=== PATIENT | male | born 2000 | race Caucasian/White ===

== ENCOUNTER 2018-09-16 20:22 | Inpatient (IN) | payer BC ==
[~2018-09-16] VITALS: Ht 167.6 cm; Wt 79.3 kg
[2018-09-16 23:30] VITALS: BP 143/75; PULSE 82; RESP 18
[2018-09-17 00:04] VITALS: Ht 167.6 cm; Wt 79.3 kg
[2018-09-17 02:00] VITALS: BP 142/73; PULSE 81; RESP 18
--- NOTE | 2018-09-17 05:07 | NUR ---
Dr. Aguillon called to obtain admission orders and request nausea and pain medication. Dr. Aguillon stated "ok, i'm going to look at it right now."
[2018-09-17] MEDS: DEXTROSE 5%-0.45% NACL 1,000 ML IV SCH ×2 (05:23→17:03)
[2018-09-17] MEDS ORDERED: NACL 0.9% 3 ML SYG IV SCH (05:30)
[2018-09-17] MEDS ORDERED: ALBUTEROL/IPRATROPIUM (NEB) 3 ML AMP HHN PRN (05:30)
[2018-09-17] MEDS ORDERED: METOCLOPRAMIDE 10 MG INJ IV ONE (05:30)
[2018-09-17] MEDS: morphine 4 MG/ML VIAL IV PRN (05:31)
[2018-09-17] MEDS: PANTOPRAZOLE 40 MG INJ IV SCH (05:33)
--- NOTE | 2018-09-17 05:35 | HP ---
Date/Time of Note Date/Time of Note DATE: 09/17/18 TIME: 05:34 Assessment/Plan VTE Prophylaxis Risk score (from Nsg)>0 risk: 0 Pharmacological prophylaxis: heparin Lines/Catheters IV Catheter Type (from Nrsg): Saline Lock Assessment/Plan Assessment/Plan 18-year-old with no significant past medical history transferred from outside hospital for insurance reason after he initially presented with intractable vomiting and epigastric abdominal pain. Abdominal ultrasound was negative unremarkable. CT abdomen/pelvis with finding of possible infectious/colitis and hiatal hernia PLAN Symptom can be from worsening of his gastritis or PUD keep n.p.o. with IV fluid for now pain meds and antiemetics PPI will consider repeating CT abdomen/pelvis based on clinical course, however at this point is not warranted. I also do not believe the initiation of antibiotics is necessary at this time will consider GI consult if symptoms persist HPI/ROS Admit Date/Time Admit Date/Time Sep 16, 2018 at 23:16 Hx of Present Illness This is a 18-year-old male with history of asthma and possible gastritis who initially presented on outside hospital complaining of abdominal pain and vomiting. Pain is mainly localized in the epigastric area. Emesis described as nonbilious nonbloody. Symptom has been progressively getting worse for the past 4 days. At the outside facility abdominal ultrasound was unremarkable. CT abdomen/pelvis shows some findings that could be from an infectious etiology/colitis. Also small hiatal hernia was noted. He denies diarrhea. On further questioning however, he said vomiting actually is been going on for about 8 months but with much less intensity. He said every few days, he occasionally has been vomiting in the morning almost always after having bowel movement. Over the past 4 days however, he has had multiple vomiting episodes as well as epigastric abdominal pain and as such she decided to come for evaluation. Denied alcohol or marijuana PMH/Family/Social Past Medical History PMH/Family/Social Past Medical History Medical History: other (see hpi) Coded Allergies: No Known Drug Allergy (Verified Allergy, Unknown, 05/02/16) Past Surgical History Past Surgical Hx: other (see hpi) Family History Significant Family History: no pertinent family hx Social History Alcohol Use: other Smoking Status: Unknown if ever smoked Drug Use: other Medications Current Medications Dextrose/Sodium Chloride 1,000 ml @ 125 mls/hr Q8H IV ; Start 09/17/18 at 05:08 IV Flush (NS 3 ml) 3 ml PER PROTOCOL IV ; Start 09/17/18 at 05:30 Ondansetron HCl (Zofran Inj) 4 mg Q6H PRN IV NAUSEA AND/OR VOMITING; Start 09/17/18 at 05:30 Morphine Sulfate (morphine) 3 mg Q4H PRN IV SEVERE PAIN LEVEL 7-10; Start 09/17/18 at 05:30 Pantoprazole (Protonix Iv) 40 mg DAILY@06 IV ; Start 09/17/18 at 06:00 Albuterol/ Ipratropium (Duoneb) 3 ml Q2H RESP THERAPY PRN HHN SHORTNESS OF BREATH; Start 09/17/18 at 05:30 Coded Allergies: No Known Allergies (Verified Allergy, Unknown, 09/17/18) Social History Smoking Status: Former smoker Exam/Review of Systems Vital Signs Vitals Vital Signs Date Temp Pulse Resp B/P (MAP) Pulse Ox O2 O2 Flow FiO2 Time Delivery Rate 09/17/18 98.3 81 18 142/73 96 02:00 (96) Exam Constitutional: alert, oriented, well developed Eyes: EOMI Neck: supple, non-tender Respiratory: clear to auscultation Cardiovascular: regular rate and rhythm, nl pulses Gastrointestinal: soft, non-tender Extremities: normal pulses LUZ ELENA MARSHALL MD Sep 17, 2018 05:35
[2018-09-17 07:40] VITALS: BP 135/82; PULSE 60; RESP 16
--- NOTE | 2018-09-17 11:54 | NUR ---
SS Note: AHCD SW received notification pt interested in more information regarding AHCD. The patient is a 18-year-old male with history of asthma and possible gastritis admitted due to abdominal pain and vomiting. SW met with pt to provide support, complete psychosocial assessment, and link pt to appropriate resources as needed. Pt agreed for his mother and girlfriend to be at bedside. Pt reported he is single and has no children. Pt verbally appointed his mother, Haleigh Hardy , as surrogate decision maker/spokesperson. Pt confirmed address on facesheet and stated he lives with friends. 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 Pt is independent with ADL's and does not require DME. Pt has [employer] insurance. No PCP. SW introduced self and the role of the social work assistant. SW discussed and provided education about completing and facilitating the AHCD. Pt was provided with AHCD form. No AHCD f/u requested. SW encouraged f/u with PCP as outpatient and provided list of community clinics for a PCP. SW assessed for other needs, which were denied at this time. SW remains available for f/u as needed.
[2018-09-17 14:30] VITALS: BP 142/82; PULSE 62; RESP 16
--- NOTE | 2018-09-17 15:32 | QN ---
Documentation Comment 18-year-old male with no significant past medical history, was transferred from outside hospital where he initially presented with 3-day duration of feeling weak with nonbilious/nonbloody vomiting, abdominal pain and diarrhea. Currently patient symptoms are completely resolved. Repeat abdominal x-ray at [facility] showed no evidence of obstruction with mild ileus. This could be most likely secondary to gastroenteritis. Currently, he is asymptomatic and we will start him on a clear diet and advance as tolerated. If patient remains stable without any further symptoms, DC planning in a.m. He is also very eager to be discharged. I have also instructed patient to have a gastroenterology outpatient consultation for a screening EGD/colonoscopy which he verbalized understanding. Case discussed with Dr. Ivey. SIRISHA GOINS NP Sep 17, 2018 15:32
--- NOTE | 2018-09-17 19:00 | NUR ---
Patient on bed rest, alert and oriented, vital signs stable. Denies pain. Full liquid diet well tolerated. No nausea or vomiting, no abdominal pain. Patient continue with IV fluids.
[2018-09-17 20:09] VITALS: BP 135/80; PULSE 61; RESP 16
[2018-09-18] MEDS: DEXTROSE 5%-0.45% NACL 1,000 ML IV SCH ×4 (01:27→21:02)
[2018-09-18 03:18] VITALS: BP 144/87; PULSE 60; RESP 18
[2018-09-18] MEDS: PANTOPRAZOLE 40 MG INJ IV SCH (06:00)
--- NOTE | 2018-09-18 06:22 | NUR ---
RN Notes Patient had no changes in condition overnight. Remained afebrile and continuously denied any pain or discomfort. IV to right ac infiltrated and new site inserted. Hourly rounding provided, patient's bed at lowest position. Will endorse to oncoming RN for continuation of care.
[2018-09-18 08:05] VITALS: BP 137/88; PULSE 56; RESP 18
[2018-09-18] MEDS: ONDANSETRON 4 MG INJ IV PRN (08:42)
[2018-09-18] MEDS: morphine 4 MG/ML VIAL IV PRN ×2 (08:43→16:46)
[2018-09-18] MEDS ORDERED: METOCLOPRAMIDE 10 MG INJ IV ONE (11:00)
--- NOTE | 2018-09-18 12:49 | PN ---
Date/Time of Note Date/Time of Note DATE: 09/18/18 TIME: 12:48 Assessment/Plan VTE Prophylaxis Risk score (from Ns)>0 risk: 1 SCD applied (from Ns): Yes Pharmacological prophylaxis: NA/contraindicated Pharm contraindication: low risk/ambulating Lines[facility] IV Urinary Cath still in place: No Assessment/Plan Hospital Course SUBJECTIVE: Patient with 7 out of 10 abdominal pain. Also had an episode of vomiting with diet advancement. Feeling slightly nauseated at this time. OBJECTIVE: Vital signs-see below PHYSICAL EXAM: Constitutional: Well-developed, adequately built, lying in bed comfortably. Psych: nl mood/affect, no complaints Head: atraumatic, normocephalic Eyes: nl conjunctiva, nl sclera ENMT: mucosa pink and moist, nl external ears & nose Neck: non-tender, supple Respiratory: clear to auscultation, normal air movement Cardiovascular: nl pulses, regular rate and rhythm Gastrointestinal: Generalized tenderness to all quadrants. No rebound tenderness. Soft, bowel sounds active in all 4 quadrants. Musculoskeletal/extremities: nl extremities to inspection, motor strength equal bilaterally, no focal deficit. Normal pulses,no cyanosis, no edema. Neurological: Alert oriented 3,nl speech, nl strength Skin: nl turgor ASSESSMENT/PLAN:18-year-old male with no significant past medical history, was transferred from outside hospital where he initially presented with 3-day duration of feeling weak with nonbilious/nonbloody vomiting, abdominal pain and diarrhea. 1. Acute gastroenteritis. -We will de-escalate diet back to clear liquid as he could not tolerate a regular diet today. -Patient with no fevers, trending down WBC, no indication for antibiotics. -PPI prophylaxis, IV fluids, PRN Zofran and add Reglan [id number] for the next 24 hours to alleviate his symptoms. -If symptoms persist, will consider GI evaluation for EGD evaluation. 2. Ileus -Likely secondary to #1 -Obtain a CT abdomen and pelvis with and without contrast to rule out any obstruction. -Continue IV fluids, change diet back to clear. 3. Leukocytosis, likely reactive. -Improved without antibiotics. DVT prophylaxis: SCDs PUD prophylaxis: PPI CODE STATUS: Full code Diet: Clear diet. Disposition: Continue current medical management. Await for clinical improvement. Follow-up CT findings. Patient was seen in collaboration with . Result Diagram: 09/18/18 0520 09/18/18 0520 Results 24hrs Laboratory Tests Test 09/18/18 05:20 White Blood Count 12.0 #H Red Blood Count 4.94 Hemoglobin 14.7 Hematocrit 41.9 L Mean Corpuscular Volume 84.8 Mean Corpuscular Hemoglobin 29.8 Mean Corpuscular Hemoglobin Concent 35.1 Red Cell Distribution Width 12.8 Platelet Count 282 Mean Platelet Volume 10.1 Immature Granulocytes % 0.700 H Neutrophils % 55.4 Lymphocytes % 33.8 Monocytes % 8.9 Eosinophils % 0.8 Basophils % 0.4 Nucleated Red Blood Cells % 0.0 Immature Granulocytes # 0.080 H Neutrophils # 6.6 Lymphocytes # 4.0 H Monocytes # 1.1 H Eosinophils # 0.1 Basophils # 0.1 Nucleated Red Blood Cells # 0.0 Sodium Level 143 Potassium Level 3.8 Chloride Level 101 Carbon Dioxide Level 29 Anion Gap 13 Blood Urea Nitrogen 12 Creatinine 0.78 Est Glomerular Filtrat Rate mL/min > 60 Glucose Level 107 Calcium Level 9.6 Phosphorus Level 4.6 Magnesium Level 2.3 Exam/Review of Systems Vital Signs Vitals Vital Signs Date Temp Pulse Resp B/P (MAP) Pulse Ox O2 O2 Flow FiO2 Time Delivery Rate 09/18/18 98.5 56 18 137/88 98 08:05 (104) 09/17/18 Room Air 14:30 Intake and Output 09/17/18 09/17/18 09/18/18 1515:00 23:00 07:00 IntakeIntake Total 1600 ml 1875 ml BalanceBalance 1600 ml 1875 ml Medications Medications Current Medications Dextrose/Sodium Chloride 1,000 ml @ 125 mls/hr Q8H IV Last administered on 09/18/18at 11:06; Admin Dose 125 MLS/HR; Start 09/17/18 at 05:08 IV Flush (NS 3 ml) 3 ml PER PROTOCOL IV ; Start 09/17/18 at 05:30 Ondansetron HCl (Zofran Inj) 4 mg Q6H PRN IV NAUSEA AND/OR VOMITING Last administered on 09/18/18at 08:42; Admin Dose 4 MG; Start 09/17/18 at 05:30 Morphine Sulfate (morphine) 3 mg Q4H PRN IV SEVERE PAIN LEVEL 7-10 Last admin istered on 09/18/18at 08:43; Admin Dose 3 MG; Start 09/17/18 at 05:30 Pantoprazole (Protonix Iv) 40 mg DAILY@06 IV Last administered on 09/18/18at 06:00; Admin Dose 40 MG; Start 09/17/18 at 06:00 Albuterol/ Ipratropium (Duoneb) 3 ml Q2H RESP THERAPY PRN HHN SHORTNESS OF BREATH; Start 09/17/18 at 05:30 SIRISHA GOINS V. WEATHER CLERK Sep 18, 2018 12:49
[2018-09-18 14:30] VITALS: BP 130/63; PULSE 58; RESP 16
[2018-09-18] MEDS: METOCLOPRAMIDE 10 MG INJ IV SCH (16:46)
--- NOTE | 2018-09-18 17:23 | CONS ---
Date/Time of Note Date/Time of Note DATE: 09/18/18 TIME: 17:09 Assessment/Plan Assessment/Plan Assessment/Plan Assessment: Intractable nausea and vomiting Epigastric pain Gas/bloating Diarrhea Mild ileus Former marijuana user -quit 1 month ago Plan: Stool studies Stool for H. pylori Tigan x1 Continue Reglan, Zofran and PPI Start Levsin CT scan pending Patient seen in collaboration with Result Diagram: 09/18/18 0520 09/18/18 0520 Results 24hrs Laboratory Tests Test 09/18/18 05:20 White Blood Count 12.0 #H Red Blood Count 4.94 Hemoglobin 14.7 Hematocrit 41.9 L Mean Corpuscular Volume 84.8 Mean Corpuscular Hemoglobin 29.8 Mean Corpuscular Hemoglobin Concent 35.1 Red Cell Distribution Width 12.8 Platelet Count 282 Mean Platelet Volume 10.1 Immature Granulocytes % 0.700 H Neutrophils % 55.4 Lymphocytes % 33.8 Monocytes % 8.9 Eosinophils % 0.8 Basophils % 0.4 Nucleated Red Blood Cells % 0.0 Immature Granulocytes # 0.080 H Neutrophils # 6.6 Lymphocytes # 4.0 H Monocytes # 1.1 H Eosinophils # 0.1 Basophils # 0.1 Nucleated Red Blood Cells # 0.0 Sodium Level 143 Potassium Level 3.8 Chloride Level 101 Carbon Dioxide Level 29 Anion Gap 13 Blood Urea Nitrogen 12 Creatinine 0.78 Est Glomerular Filtrat Rate mL/min > 60 Glucose Level 107 Calcium Level 9.6 Phosphorus Level 4.6 Magnesium Level 2.3 CC: ALVARO OAKES MD ; Consultation Date/Type/Reason Admit Date/Time Sep 16, 2018 at 23:16 Date of Consultation: Sep 18, 2018 Type of Consult GI Reason for Consultation Intractable nausea and vomiting Hx of Present Illness This is a 18-year-old male with no significant medical history who has been transferred from outside hospital for insurance reason with intractable nausea and vomiting, abdominal pain and diarrhea. Patient reports his symptoms started 4 days ago. Patient has a history of marijuana use. He had a similar episode happened 8 months ago. Patient reports quitting marijuana use 1 month ago. Currently patient denies hematemesis, hematochezia, constipation or fever. Complaining of epigastric pain on palpation. Abdominal x-ray shows mild ileus. CT of the abdomen has been ordered. The plan is to continue Reglan, Zofran and n.p.o. status. Will order Tigan x1, GI cocktail, stool studies and stool for H. pylori. Continue observation. Gastrointestinal: no complaints (See HPI) Past Medical History Medical History: no pertinent history Medications Current Medications Dextrose/Sodium Chloride 1,000 ml @ 125 mls/hr Q8H IV Last administered on 09/18/18at 11:06; Admin Dose 125 MLS/HR; Start 09/17/18 at 05:08 IV Flush (NS 3 ml) 3 ml PER PROTOCOL IV ; Start 09/17/18 at 05:30 Ondansetron HCl (Zofran Inj) 4 mg Q6H PRN IV NAUSEA AND/OR VOMITING Last administered on 09/18/18at 08:42; Admin Dose 4 MG; Start 09/17/18 at 05:30 Morphine Sulfate (morphine) 3 mg Q4H PRN IV SEVERE PAIN LEVEL 7-10 Last administered on 09/18/18at 16:46; Admin Dose 3 MG; Start 09/17/18 at 05:30 Pantoprazole (Protonix Iv) 40 mg DAILY@06 IV Last administered on 09/18/18at 06:00; Admin Dose 40 MG; Start 09/17/18 at 06:00 Albuterol/ Ipratropium (Duoneb) 3 ml Q2H RESP THERAPY PRN HHN SHORTNESS OF BREATH; Start 09/17/18 at 05:30 Metoclopramide HCl (Reglan) 10 mg Q6 IV Last administered on 09/18/18at 16:46; Admin Dose 10 MG; Start 09/18/18 at 18:00 Allergies: Coded Allergies: No Known Allergies (Verified Allergy, Unknown, 09/17/18) Social History Smoking Status: Former smoker Drug Use: marijuana (Quit 1 month ago) Exam/Review of Systems Vital Signs Vitals Vital Signs Date Temp Pulse Resp B/P (MAP) Pulse Ox O2 O2 Flow FiO2 Time Delivery Rate 09/18/18 98.5 56 18 137/88 98 08:05 (104) 09/17/18 Room Air 14:30 Intake and Output 09/17/18 09/17/18 09/18/18 1515:00 23:00 07:00 IntakeIntake Total 1600 ml 1875 ml BalanceBalance 1600 ml 1875 ml Exam PHYSICAL EXAMINATION: GENERAL: Well developed, well nourished, alert & oriented x 3, in no acute distress SKIN: No lesions, no stigmata chronic liver disease, no evidence of bleeding diathesis LYMPHATIC: No palpable lymphadenopathy. HEAD: Normocephalic, atraumatic, no tenderness. EYES: Pupils equal reactive to light and accommodation, full extraocular movements, sclera clear, non-icteric, no discharge. EARS/NOSE AND THROAT: Ears normal, nose normal, oropharynx normal, oral membranes well hydrated without lesions. NECK: Supple, no masses, thyroid normal, JVP within normal limits, carotids normal without bruits. CHEST: Inspection within normal limits. CARDIOVASCULAR: Heart: Regular rate and rhythm, no murmurs, gallops or rubs. Peripheral pulses present within normal limits, no cyanosis, clubbing or edemas. No pulsatile abdominal mass RESPIRATORY: Lungs clear to auscultation and percussion, no wheezing, no rubs GASTROINTESTINAL AND LIVER: Abdomen: Soft, epigastric tenderness, non-distended, no hernias, no masses, no organomegaly, no ascites, no guarding, no rebound tenderness, normoactive bowel sounds. Rectal: Deferred. GENITOURINARY: Male genitalia within normal limits. EXTREMITIES: No cyanosis, clubbing or edema. Medications Medications Current Medications Dextrose/Sodium Chloride 1,000 ml @ 125 mls/hr Q8H IV Last administered on 09/18/18at 11:06; Admin Dose 125 MLS/HR; Start 09/17/18 at 05:08 IV Flush (NS 3 ml) 3 ml PER PROTOCOL IV ; Start 09/17/18 at 05:30 Ondansetron HCl (Zofran Inj) 4 mg Q6H PRN IV NAUSEA AND/OR VOMITING Last administered on 09/18/18at 08:42; Admin Dose 4 MG; Start 09/17/18 at 05:30 Morphine Sulfate (morphine) 3 mg Q4H PRN IV SEVERE PAIN LEVEL 7-10 Last administered on 09/18/18at 16:46; Admin Dose 3 MG; Start 09/17/18 at 05:30 Pantoprazole (Protonix Iv) 40 mg DAILY@06 IV Last administered on 09/18/18at 06:00; Admin Dose 40 MG; Start 09/17/18 at 06:00 Albuterol/ Ipratropium (Duoneb) 3 ml Q2H RESP THERAPY PRN HHN SHORTNESS OF EDWARD ATH; Start 09/17/18 at 05:30 Metoclopramide HCl (Reglan) 10 mg Q6 IV Last administered on 09/18/18at 16:46; Admin Dose 10 MG; Start 09/18/18 at 18:00 JOANN ANDERSEN NP Sep 18, 2018 17:21
[2018-09-18] MEDS ORDERED: TRIMETHOBENZAMIDE 100 MG/ML VIAL IM ONE (17:30)
[2018-09-18] MEDS ORDERED: LIDOCAINE/MYLANTA 40 ML BTL PO ONE (17:30)
--- NOTE | 2018-09-18 18:05 | NUR ---
rn notes patient is alert and oriented X4, no s/s of acute distress noted. complains of pain and nausea and vomiting, medicated as ordered, Jennifer TELEPHONE ENGINEER and GI team made aware. all due medicine given. all needs attended to. call light placed within reach and fall precautions observed well. pending stool sample, will endorse next shift to collect. will continue to monitor.
[2018-09-18 20:00] VITALS: BP 136/79; PULSE 67; RESP 18
[2018-09-18] MEDS: HYOSCYAMINE 0.125 MG SUBL TAB SL SCH (20:58)
[2018-09-18] MEDS ORDERED: SOD CHLORIDE 0.9% 100 ML ONE (21:49)
[2018-09-18] MEDS ORDERED: IOHEXOL 300MG/ML 150 ML BTL ONE (21:49)
--- NOTE | 2018-09-18 22:00 | NUR ---
Procedure Ordered: CT ABD/PEL W/W/O Reason for Exam Today: ABD PAIN Previous Exams: Allergies: Current Medications Taken: Glucophage ( ) Metformin ( ) Previous reaction to contrast media: Yes ( ) No ( ) : Yes ( ) No (X ) Asthma: Yes ( ) No (X ) Diabetes: Yes ( ) No ( X) Myeloma: Yes ( ) No (X ) Heart Disease: Yes ( ) No (X ) Cardiac Disease: Yes ( ) No (X ) Kidney Disease: Yes ( ) No ( X) Vascular Disease: Yes ( ) No (X ) Patient Teaching done: Yes ( ) No ( ) Shading Painter Used: Yes ( ) No ( ) Name of Shading Painter: Language Used: As part of the test requested by your doctor, contrast media may be injected into your vein while the x-rays are being taken. Occasionally, reactions from IV contrast may occur. The physician and staff of this hospital are trained to treat these reactions. Select the type of Contrast that will be given to patient: Isovue 300 ( ) Isovue 370 ( ) Visipaque ( ) Cystografin ( ) Gastrographin ( ) Redi-cat ( ) Volumen ( ) Amount of contrast to be given: 100CC OMNI 300 IV ( ) PO ( ) Date given: 09/18/18 Lab Values: BUN: 11 Creatinine: .83 Reason why contrast cannot be given: Location of patient pre-procedure: Location of patient post procedure:
--- NOTE | 2018-09-18 23:00 | NUR ---
RN Notes Patient had abdominal/pelvic CT done, still pending results. No complaints of n/v or pain. Pending stool collection. Patient has not had a bowel movement. Endorsed to SUSANNA Hdez for continuity of care.
--- NOTE | 2018-09-18 23:05 | NUR ---
Received report to SUSANNA Hodgson for continuity of care. Will cont to monitor pt
[2018-09-19] MEDS: METOCLOPRAMIDE 10 MG INJ IV SCH ×3 (00:09→12:52)
[2018-09-19] MEDS: HYOSCYAMINE 0.125 MG SUBL TAB SL SCH ×3 (00:09→12:52)
[2018-09-19 01:29] VITALS: BP 142/86; PULSE 60; RESP 18
[2018-09-19] MEDS: ONDANSETRON 4 MG INJ IV PRN (03:03)
[2018-09-19] MEDS: morphine 4 MG/ML VIAL IV PRN (03:39)
[2018-09-19] MEDS: PANTOPRAZOLE 40 MG INJ IV SCH (06:03)
[2018-09-19] MEDS: DEXTROSE 5%-0.45% NACL 1,000 ML IV SCH (06:09)
--- NOTE | 2018-09-19 06:44 | NUR ---
End of shift Report: Awake on bed watching TV. NO SOB. No resp distress. Afebrile. On full liquid well-emani. Medicated for pain x1 this shift. Nausea med given x1 and with Reglan IV Q6H RTC. Needs attended and anticipated. Call light within reach. Will continue with current POC. Will endorse accordingly.
[2018-09-19 08:12] VITALS: BP 141/77; PULSE 57; RESP 18
--- NOTE | 2018-09-19 12:04 | PN ---
Date/Time of Note Date/Time of Note DATE: 09/19/18 TIME: 11:53 Assessment/Plan VTE Prophylaxis Risk score (from Ns)>0 risk: 1 SCD applied (from Ns): No SCD contraindicated: low risk/ambulating Pharmacological prophylaxis: NA/contraindicated Pharm contraindication: low risk/ambulating Lines/Catheters [facility] Type [facility] Peripheral IV Urinary Cath still in place: No Assessment/Plan Hospital Course Assessment: Intractable nausea and vomiting Epigastric pain Gas/bloating Diarrhea Mild ileus Former marijuana user -quit 1 month ago Leukocytosis- trending down Plan: Stool studies- pending Stool for H. pylori- pending CT scan reviewed- no GI etiology for current sx D/c planning per hospitalist Patient seen in collaboration with Subjective: Course reviewed with nursing staff Patient interviewed and examined All labs, imaging and other results reviewed The patient feels much better. Currently no c/o nausea/vomiting or abdominal pain. Diet gas been advanced to regular. stool studies pending, WBC down from admissio n. He is afebrile. pt appears astable for out-pt management. PHYSICAL EXAMINATION: GENERAL: Well developed, well nourished, alert & oriented x 3, in no acute distress SKIN: No lesions HEAD: Normocephalic, atraumatic, no tenderness. EYES: Pupils equal reactive to light EARS/NOSE AND THROAT: Ears normal, nose normal, oropharynx normal NECK: Supple, no masses CHEST: Inspection within normal limits. CARDIOVASCULAR: Heart: Regular rate and rhythm RESPIRATORY: Lungs clear to auscultation GASTROINTESTINAL AND LIVER: Abdomen: Soft, epigastric tenderness, non-distended, no hernias, no masses, no organomegaly, no ascites, no guarding, no rebound tenderness, normoactive bowel sounds. Rectal: Deferred. GENITOURINARY: Male genitalia within normal limits. EXTREMITIES: No cyanosis, clubbing or edema. Result Diagram: 09/19/18 0453 09/19/183 Results 24hrs Laboratory Tests Test 09/19/18 04:53 White Blood Count 12.0 H Red Blood Count 4.95 Hemoglobin 14.4 Hematocrit 41.3 L Mean Corpuscular Volume 83.4 Mean Corpuscular Hemoglobin 29.1 Mean Corpuscular Hemoglobin Concent 34.9 Red Cell Distribution Width 12.6 Platelet Count 282 Mean Platelet Volume 10.1 Immature Granulocytes % 0.500 H Neutrophils % 76.4 H Lymphocytes % 14.0 L Monocytes % 8.6 Eosinophils % 0.1 Basophils % 0.4 Nucleated Red Blood Cells % 0.0 Immature Granulocytes # 0.060 H Neutrophils # 9.2 H Lymphocytes # 1.7 Monocytes # 1.0 H Eosinophils # 0.0 Basophils # 0.1 Nucleated Red Blood Cells # 0.0 Sodium Level 139 Potassium Level 3.3 L Chloride Level 103 Carbon Dioxide Level 25 Anion Gap 11 Blood Urea Nitrogen 5 L Creatinine 0.65 Est Glomerular Filtrat Rate mL/min > 60 Glucose Level 131 Calcium Level 9.1 Exam/Review of Systems Vital Signs Vitals Vital Signs Date Temp Pulse Resp B/P (MAP) Pulse Ox O2 O2 Flow FiO2 Time Delivery Rate 09/19/18 98.0 57 18 141/77 0 Room Air 08:12 (98) Intake and Output 09/18/18 09/18/18 09/19/18 1414:59 22:59 06:59 IntakeIntake Total 125 ml 1000 ml OutputOutput Total 200 ml 800 ml BalanceBalance -75 ml -800 ml 1000 ml Medications Medications Current Medications Dextrose/Sodium Chloride 1,000 ml @ 125 mls/hr Q8H IV Last administered on 09/19/18at 06:09; Admin Dose 125 MLS/HR; Start 09/17/18 at 05:08 IV Flush (NS 3 ml) 3 ml PER PROTOCOL IV ; Start 09/17/18 at 05:30 Ondansetron HCl (Zofran Inj) 4 mg Q6H PRN IV NAUSEA AND/OR VOMITING Last administered on 09/19/18at 03:03; Admin Dose 4 MG; Start 09/17/18 at 05:30 Morphine Sulfate (morphine) 3 mg Q4H PRN IV SEVERE PAIN LEVEL 7-10 Last administered on 09/19/18at 03:39; Admin Dose 3 MG; Start 09/17/18 at 05:30 Pantoprazole (Protonix Iv) 40 mg DAILY@06 IV Last administered on 09/19/18at 06:03; Admin Dose 40 MG; Start 09/17/18 at 06:00 Albuterol/ Ipratropium (Duoneb) 3 ml Q2H RESP THERAPY PRN HHN SHORTNESS OF BREATH; Start 09/17/18 at 05:30 Metoclopramide HCl (Reglan) 10 mg Q6 IV Last administered on 09/19/18 06:03; Admin Dose 10 MG; Start 09/18/18 at 18:00 Hyoscyamine (Levsin (Sl)) 0.125 mg Q6 SL Last administered on 09/19/18 06:03; Admin Dose 0.125 MG; Start 09/18/18 at 18:00 EMMIE LANCASTER Sep 19, 2018 12:04
[2018-09-19] MEDS ORDERED: POTASSIUM CHLORIDE (SR) 20 MEQ TAB PO STA (12:20)
--- NOTE | 2018-09-19 12:30 | PDOCDIS ---
Discharge Instructions CONDITION [id number] Patient Condition: [id number] Stable HOME CARE INSTRUCTIONS: [id number] Diet Instructions: [id number] Regular FOLLOW UP/APPOINTMENTS Follow-up Plan Follow-up with primary care physician in 1 week. SIRISHA GOINS NP Sep 19, 2018 12:30
[2018-09-19] MEDS ORDERED: FAMO-96 PO (12:32)
--- NOTE | 2018-09-19 12:35 | NUR ---
RN NOTES Patient was seen by GEOMETRY TUTOR Jennifer, was made aware that potassium level is 3.3, GEOMETRY TUTOR gave an order to of potassium 20 mEq po x 1, Public Relations Associate also ordered to advance patient's diet to regular and if able to tolerate, patient may go home. Patient asked for ham sandwich, was able to finish and tolerated it well. No nausea/ vomiting noted. Patient stated that he will going home sometime after 1500. Will continue to monitor for now.
--- NOTE | 2018-09-19 12:37 | DS ---
Date/Time of Note Date/Time of Note DATE: 09/19/18 TIME: 12:35 Discharge Summary Admission/Discharge Info Admit Date/Time Sep 16, 2018 at 23:16 Discharge Date/Time Discharge Diagnosis 1. Acute gastroenteritis. Resolved. 2. Ileus . Resolved. 3. Leukocytosis, likely reactive. Patient Condition: Stable Consults , gastroenterology Procedures 09/17/2018.. Abdominal x-ray IMPRESSION: 1. The stomach is not distended. There is a very mild ileus localized to the left upper quadrant without evidence of bowel obstruction. 2. There are 4 lumbarized vertebral with spina bifida occulta involving the most superior sacralized vertebra. 09/19/2017. CT abdomen and pelvis with and without contrast. FINDINGS: The lung bases are clear of any infiltrate or nodule. No effusion is seen. The liver is of normal size, contour and attenuation with no mass or ductal dilatation. No gallstones are visualized. No splenic, adrenal or pancreatic abnormalities present. Kidneys enhance symmetrically and are of normal size and contour. No hydronephrosis, calculus or masses seen. Ureters are of normal course and caliber with no stone. No bladder mass or stone is present. Prostate and seminal vesicles are normal. There is no aneurysm. No adenopathy is present. No bowel mass or obstruction is present. The appendix is normal. No phlegm on, ascites or pneumoperitoneum is visualized. The osseous structures are intact. IMPRESSION: No evidence of urolithiasis, obstructive uropathy, diverticulitis or appendicitis. Hospital Course 18-year-old male with no significant past medical history, was transferred from outside hospital where he initially presented with 3-day duration of feeling weak with nonbilious/nonbloody vomiting, abdominal pain and diarrhea. Patient did not have any signs of infection. He was treated for possible gastroenteritis with fluids, PRN Zofran. Abdominal x-ray showed mild ileus likely contributed by gastroenteritis. Patient symptoms improved. He was then started on a diet which he was able to tolerate. At this time, patient is at his baseline with no acute distress. He has been tolerating diet and activities well. No fevers. White count trended down without much fluctuations. Patient is medically stable for discharge with outpatient follow-up. He also had a GI evaluation and there is no further GI inpatient workup indicated. Patient CT abdomen and pelvis was negative for any acute abdominal findings. Approximately 60 m spent on coordinating the discharge on this patient. Patient was seen in collaboration with . Home Meds Active Scripts Famotidine* (Pepcid*) 20 Mg Tablet, 20 MG PO BID, #60 TAB Prov:SIRISHA GOINS VLore GASPAR 09/19/18 Follow-up Plan Follow-up with primary care physician in 1 week. Primary Care Provider Not On Staff Doctor Pending Labs Laboratory Tests Test 09/19/18 04:53 White Blood Count 12.0 10^3/ul (4.8-10.8) Red Blood Count 4.95 10^6/ul (4.70-6.10) Hemoglobin 14.4 g/dl (14.0-18.0) Hematocrit 41.3 % (42.0-52.0) Mean Corpuscular Volume 83.4 fl (72.0-104.0) Mean Corpuscular Hemoglobin 29.1 pg (29.0-33.0) Mean Corpuscular Hemoglobin Concent 34.9 g/dl (32.0-37.0) Red Cell Distribution Width 12.6 % (11.5-14.5) Platelet Count 282 10^3/UL (140-415) Mean Platelet Volume 10.1 fl (7.4-10.4) Immature Granulocytes % 0.500 % (0.001-0.429) Neutrophils % 76.4 % (30.0-74.0) Lymphocytes % 14.0 % (18.0-55.0) Monocytes % 8.6 % (0.0-13.0) Eosinophils % 0.1 % (0.0-7.0) Basophils % 0.4 % (0.0-2.0) Nucleated Red Blood Cells % 0.0 /100WBC (0.0-0.0) Immature Granulocytes # 0.060 10^3/ul (0.0-0.031) Neutrophils # 9.2 10^3/ul (1.6-7.5) Lymphocytes # 1.7 10^3/ul (0.8-2.9) Monocytes # 1.0 10^3/ul (0.3-0.9) Eosinophils # 0.0 10^3/ul (0.0-0.5) Basophils # 0.1 10^3/ul (0.0-0.1) Nucleated Red Blood Cells # 0.0 10^3/ul (0.0-0.0) Sodium Level 139 mmol/L (135-144) Potassium Level 3.3 mmol/L (3.5-5.1) Chloride Level 103 mmol/L (97-110) Carbon Dioxide Level 25 mmol/L (21-31) Anion Gap 11 (5-13) Blood Urea Nitrogen 5 mg/dl (7-20) Creatinine 0.65 mg/dl (0.61-1.24) Est Glomerular Filtrat Rate mL/min > 60 mL/min (>60) Glucose Level 131 mg/dl (70-220) Calcium Level 9.1 mg/dl (8.4-10.2) SIRISHA GOINS NP Sep 19, 2018 12:37
[2018-09-19 14:00] VITALS: BP 145/70; PULSE 65; RESP 18
--- NOTE | 2018-09-19 15:09 | NUR ---
RN NOTES patient was discharge in stable condition with significant other. Vital signs stable as follows BP 132/61, pulse 59, respirations 18, O2 saturations 99% on room air, temperature 97.4. Patient denies any pain or discomfort. All discharge instructions given and patient verbalized understanding. All belongings taken with none missing. Peripheral IV line discontinued and patient tolerated it well. Patient left at approximately 1520 in stable condition, refused to use wheelchair.
== END 2018-09-19 15:17 | disposition home or self-care (01) | DRG 392 ==
LOC: PP2 23:16
PROVIDERS: ADMIT Internal Medicine; ATTEND Internal Medicine
DX: K52.9 Noninfective gastroenteritis and colitis, unspecified (principal); K56.7 Ileus, unspecified
CPT/HCPCS: 74018; 74178; 80048; 80053; 83036; 83735; 84100; 84443; 85025; C9113; J2270; J2405; J2765; J3250; J7042; Q9967